=== PATIENT | female | born 1930 | race Caucasian/White ===

== ENCOUNTER 2016-05-26 11:31 | Day surgery (SDC) | payer BC ==
--- NOTE | ~2016-05-26 | EGD ---
EGD REPORT [facility] [address] [address] NAME: JOSIAH PERDOMO : [birth year] STATUS : REG [facility] PAT#: [id number] AGE: 85 ADM/REG DATE : 05/26/16 MR#: [id number] REPORT SERV DATE: 05/26/16 DICTATED BY: DATE: REPORT STATUS : Draft TRANSCRIBED BY: [employer] DATE: 05/26/16 Endoscopy Center Patient Name: Grace Perdomo Date of : 1930 Attending MD: KRISTIN CRYSTAL MD Procedure Date No Time: 05/26/2016 Procedure: Upper GI endoscopy Indications: Heme positive stool, Melena Referring MD: Greer Gore MD Medicines: Monitored Anesthesia Care Complications: No immediate complications. Procedure: After obtaining informed consent, the endoscope was passed under direct vision. Throughout the procedure, the patient's blood pressure, pulse, and oxygen saturations were monitored continuously. The GIF H190 [id number] was introduced through the mouth, and advanced to the third part of duodenum. The upper GI endoscopy was accomplished without difficulty. The patient tolerated the procedure well. Findings: A small hiatus hernia was present. A non-obstructing Schatzki ring (acquired) was found at the gastroesophageal junction. No other significant abnormalities were identified in a careful examination of the esophagus. There is no endoscopic evidence of Andrade's esophagus, areas of erosion, ulcerations or varices in the entire esophagus. Multiple dispersed small erosions were found on the greater curvature of the gastric body and in the gastric antrum. Biopsies were taken with a cold forceps for histology. Three non-bleeding cratered gastric ulcers were found in the gastric antrum. The largest lesion was 4 mm in largest dimension. No other significant abnormalities were identified in a careful examination of the stomach. There is no endoscopic evidence of varices, angioectasia or portal hypertension gastropathy in the entire examined stomach. The examined duodenum was normal. There is no endoscopic evidence of bleeding, inflammation, ulceration or angioectasia in the entire examined duodenum. The cardia and gastric fundus were otherwise normal on retroflexion. Impression: - Hiatus hernia. - Non-obstructing Schatzki ring. - Erosive gastropathy. Biopsied. EGD REPORT [address] [address] NAME: JOSIAH PERDOMO : [birth year] STATUS : REG [facility] PAT#: [id number] AGE: 85 ADM/REG DATE : 05/26/16 MR#: [id number] REPORT SERV DATE: 05/26/16 DICTATED BY: DATE: REPORT STATUS : Draft TRANSCRIBED BY: [employer] DATE: 05/26/16 - Gastric ulcers with clean base. - Normal examined duodenum. Recommendation: - Patient has a contact number available for emergencies. The signs and symptoms of potential delayed complications were discussed with the patient. Return to normal activities tomorrow. Written discharge instructions were provided to the patient. - Return to previous diet. - Discharge patient to home. - Use Protonix (pantoprazole) 40 mg PO daily for 12 weeks then 20 mg daily as long as on aspirin. This will replace Pepcid. I sent Rx to your [facility]. OTC substitution is okay but check with pharmacist regarding equivalent dose. Avoid anti-flammatory medicines. Procedure Code(s): --- Professional --- 62717, Esophagogastroduodenoscopy, flexible, transoral; with biopsy, single or multiple Diagnosis Code(s): --- Professional --- K44.9, Diaphragmatic hernia without obstruction or gangrene K22.2, Esophageal obstruction K31.9, Disease of stomach and duodenum, unspecified K25.9, Gastric ulcer, unspecified as acute or chronic, without hemorrhage or perforation R19.5, Other fecal abnormalities K92.1, Melena CPT copyright 2013 [employer]. All rights reserved. The codes documented in this report are preliminary and upon c java developer review may be revised to meet current compliance requirements. KRISTIN CRYSTAL MD 05/26/2016 1:34 PM This report has been signed electronically. Number of Addenda: 0 Note Initiated On: 05/26/2016 1:06 PM Scope Withdrawal Time 0 hours 0 minutes 0 seconds [id number] [id number]
--- NOTE | ~2016-05-26 | EGD ---
EGD REPORT [facility] [address] [address] NAME: JOSIAH PERDOMO : [birth year] STATUS : REG [facility] PAT#: [id number] AGE: 85 ADM/REG DATE : 05/26/16 MR#: [id number] REPORT SERV DATE: 05/26/16 DICTATED BY: DATE: REPORT STATUS : Draft TRANSCRIBED BY: [employer] DATE: 05/26/16 THIS EXAM WAS SENT IN ERROR
--- NOTE | ~2016-05-26 | EGD ---
EGD REPORT [facility] [address] [address] NAME: YESENIA PERDOMO : [birth year] STATUS : REG [facility]#: [id number] AGE: 85 ADM/REG DATE : 05/26/16 MR#: [id number] REPORT SERV DATE: 05/26/16 DICTATED BY: DATE: REPORT STATUS : Draft TRANSCRIBED BY: [employer] DATE: 05/26/16 Endoscopy Center Patient Name: Yesenia Perdomo Date of : 1930 Attending MD: KRISTIN CRYSTAL MD Procedure Date No Time: 05/26/2016 Procedure: Upper GI endoscopy Indications: Heme positive stool, Melena Referring MD: Greer Gore MD Medicines: Monitored Anesthesia Care Complications: No immediate complications. Procedure: After obtaining informed consent, the endoscope was passed under direct vision. Throughout the procedure, the patient's blood pressure, pulse, and oxygen saturations were monitored continuously. The GIF H190 [id number] was introduced through the mouth, and advanced to the third part of duodenum. The upper GI endoscopy was accomplished without difficulty. The patient tolerated the procedure well. Findings: A small hiatus hernia was present. A non-obstructing Schatzki ring (acquired) was found at the gastroesophageal junction. No other significant abnormalities were identified in a careful examination of the esophagus. There is no endoscopic evidence of Andrade's esophagus, areas of erosion, ulcerations or varices in the entire esophagus. Multiple dispersed small erosions were found on the greater curvature of the gastric body and in the gastric antrum. Biopsies were taken with a cold forceps for histology. Three non-bleeding cratered gastric ulcers were found in the gastric antrum. The largest lesion was 4 mm in largest dimension. No other significant abnormalities were identified in a careful examination of the stomach. There is no endoscopic evidence of varices, angioectasia or portal hypertension gastropathy in the entire examined stomach. The examined duodenum was normal. There is no endoscopic evidence of bleeding, inflammation, ulceration or angioectasia in the entire examined duodenum. The cardia and gastric fundus were otherwise normal on retroflexion. Impression: - Hiatus hernia. - Non-obstructing Schatzki ring. - Erosive gastropathy. Biopsied. EGD REPORT [address] [address] NAME: YESENIA PERDOMO : [birth year] STATUS : REG [facility] PAT#: [id number] AGE: 85 ADM/REG DATE : 05/26/16 MR#: [id number] REPORT SERV DATE: 05/26/16 DICTATED BY: DATE: REPORT STATUS : Draft TRANSCRIBED BY: [employer] DATE: 05/26/16 - Gastric ulcers with clean base. - Normal examined duodenum. Recommendation: - Patient has a contact number available for emergencies. The signs and symptoms of potential delayed complications were discussed with the patient. Return to normal activities tomorrow. Written discharge instructions were provided to the patient. - Return to previous diet. - Discharge patient to home. - Use Protonix (pantoprazole) 40 mg PO daily for 12 weeks then 20 mg daily as long as on aspirin. This will replace Pepcid. I sent Rx to your [facility]. OTC substitution is okay but check with pharmacist regarding equivalent dose. Avoid anti-flammatory medicines. Procedure Code(s): --- Professional --- 94285, Esophagogastroduodenoscopy, flexible, transoral; with biopsy, single or multiple Diagnosis Code(s): --- Professional --- K44.9, Diaphragmatic hernia without obstruction or gangrene K22.2, Esophageal obstruction K31.9, Disease of stomach and duodenum, unspecified K25.9, Gastric ulcer, unspecified as acute or chronic, without hemorrhage or perforation R19.5, Other fecal abnormalities K92.1, Melena CPT copyright 2013 [employer]. All rights reserved. The codes documented in this report are preliminary and upon movers review may be revised to meet current compliance requirements. KRISTIN CRYSTAL MD 05/26/2016 1:34 PM This report has been signed electronically. Number of Addenda: 0 Note Initiated On: 05/26/2016 1:06 PM Scope Withdrawal Time 0 hours 0 minutes 0 seconds [id number] [id number]
[~2016-05-26 11:31] MED LIST: ASAB PO; ATEN100 PO; CRESTOR40 MG PO; DURA25 TOP; ESTRADIOL0.5 MG OR; FISH-EPA1000 MG PO; GLUCOTROL5 PO; MAX25 PO; OSTEO BI-FLX PO
[2016-07-04] MEDS ORDERED: FORTAMET500 MG PO (16:24)
[2016-07-04] MEDS ORDERED: GLUCOTROL5 PO (16:24)
[2016-07-04] MEDS ORDERED: COZ50 PO (16:25)
[2016-07-04] MEDS ORDERED: L20 PO (16:25)
[2016-07-04] MEDS ORDERED: MAG OXIDE250 MG PO (16:25)
[2016-07-04] MEDS ORDERED: KLOR-CON 1010 MEQ PO (16:25)
[2016-07-04] MEDS ORDERED: VISKEN5 PO (16:25)
[2016-07-04] MEDS ORDERED: FISH-EPA1000 MG PO (16:26)
[2016-07-04] MEDS ORDERED: TEARS PLUS OPH (16:26)
[2016-07-04] MEDS ORDERED: CETIRIZINE HCL5 MG PO (16:26)
[2016-07-04] MEDS ORDERED: VITAMIN D31000 UNIT PO (16:26)
[2016-07-04] MEDS ORDERED: CYANO1000T PO (16:26)
[2016-07-04] MEDS ORDERED: PROTONIX PO (16:26)
[2016-07-04] MEDS ORDERED: CRESTOR5 MG PO (16:27)
[2016-07-04] MEDS ORDERED: ESTRACE0.5 MG PO (16:27)
[2016-07-04] MEDS ORDERED: SINGULAIR1 PO (16:27)
== END 2016-05-26 23:59 | disposition home health service (06) ==
LOC: DMU 11:31
PROVIDERS: Internal Medicine Gastroenterology
PROC: 0DB68ZX Excision of Stomach, Via Natural or Artificial Opening Endoscopic, Diagnostic (ICD-10-PCS; principal; 2016-05-26 13:00)
DX: K44.9 Diaphragmatic hernia without obstruction or gangrene (principal); K22.2 Esophageal obstruction; I10 Essential (primary) hypertension; K25.9 Gastric ulcer, unspecified as acute or chronic, without hemorrhage or perforation; E11.9 Type 2 diabetes mellitus without complications; I25.2 Old myocardial infarction; Z88.1 Allergy status to other antibiotic agents; Z88.8 Allergy status to other drugs, medicaments and biological substances; Z90.710 Acquired absence of both cervix and uterus; Z98.890 Other specified postprocedural states
CPT/HCPCS: 82962; 88305; J2370

== ENCOUNTER 2016-07-04 17:13 | Inpatient (IN) | payer BC ==
--- NOTE | ~2016-07-04 | CN ---
Consultation Report [facility] [address] [place]. [address] NAME: JOSIAH PERDOMO : [birth year] STATUS : ADM IN PAT#: [id number] AGE: 85 ADM/REG DATE : 07/04/16 MR#: [id number] REPORT SERV DATE: 07/05/16 DICTATED BY: PAPA ALVARES DATE: 07/05/16 REPORT STATUS : Draft TRANSCRIBED BY: [employer] DATE: 07/05/16 CARDIOLOGY CONSULTATION DATE OF CONSULTATION: INDICATION: Symptomatic bradycardia, presyncope with type 2 second-degree AV block. HISTORY: The patient is an 85-year-old white female, diabetic who is usually followed by Dr. Loco. Over the past week or so, she has had intermittent episodes of dizziness. She went to a [employer] in [place] recently, was able to keep up over the weekend, but upon returning home had an erratic heart rate, where her heart rate would jump from 80 to 40 without warning and create dizziness. She saw her primary care physician who had her admitted to the hospital. On arrival, she is in 2-1 AV block with a heart rate of 42 beats per minute. CURRENT HOME MEDICATIONS: Artificial Tears daily, cetirizine 5 per day, cholecalciferol 1000 per day, cyanocobalamin 1000 per day, estradiol 0.5 at bedtime, furosemide 20 a day, glipizide 5 per day, losartan 50 b.i.d., magnesium oxide 250 a day, metformin 500 daily, montelukast 10 per day, Carson-3 fatty acids daily, pantoprazole 40 a day, pindolol 5 per day, potassium 10 per day, rosuvastatin 5 per day. ALLERGIES OR INTOLERANCES: Sulfamethoxazole and trimethoprim. Additional allergies, cefuroxime, IV dye, latex, meperidine. SOCIAL HISTORY: Occasional alcoholic beverage. Negative for tobacco use. FAMILY HISTORY: Negative for coronary disease at a young age. PAST MEDICAL HISTORY/REVIEW OF SYSTEMS: In addition to the above, she has dyslipidemia. She has mild diastolic dysfunction and mild aortic regurgitation with mitral annular calcification based on echocardiogram a year ago. 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 PHYSICAL EXAMINATION: GENERAL: A pleasant 85-year-old white female. VITAL SIGNS: Blood pressure 118/49, pulse 46 and regular, respirations 18. SKIN: No xanthelasmas. HEENT: She is normocephalic. There is no pallor. Sclerae white. NECK: JVD is not elevated. There are no carotid bruits. CHEST: There are no crackles. CARDIAC: S1 normal, S2 physiologic. There is a 1 to 2 over 6 systolic ejection murmur heard loudest at the right second interspace transferred to the base. ABDOMEN: Soft. Consultation Report [address] [address] NAME: JOSIAH PERDOMO : [birth year] STATUS : ADM IN PAT#: [id number] AGE: 85 ADM/REG DATE : 07/04/16 MR#: [id number] REPORT SERV DATE: 07/05/16 DICTATED BY: PAPA ALVARES DATE: 07/05/16 REPORT STATUS : Draft TRANSCRIBED BY: [employer] DATE: 07/05/16 EXTREMITIES: Without edema. Pulses are +2 and symmetric. NEUROLOGIC: No focal deficits. LABORATORY DATA: BUN 19, creatinine 1.41. White count 10.7, hemoglobin 13.2. IMPRESSION: An 85-year-old white female, diabetic with 2-1 AV block. Previous history of alcohol septal ablation in 2010. We will plan pacemaker placement. Risks, benefits were discussed with the patient and her daughter. DW/JENNAL Papa Alvares M.D. / [id number] CC: Isaias Aragon Jr., [facility]
--- NOTE | ~2016-07-04 | PRECARD ---
H&P [facility] [address] [place]. [address] NAME: JOSIAH PERDOMO : [birth year] STATUS : ADM IN PAT#: [id number] AGE: 85 ADM/REG DATE : 07/04/16 MR#: [id number] REPORT SERV DATE: 07/04/16 DICTATED BY: YAN WELLS DATE: 07/04/16 REPORT STATUS : Draft TRANSCRIBED BY: [employer] DATE: 07/04/16 DATE OF ADMISSION: 07/04/2016 ADMISSION REASON: Symptomatic bradycardia and 2:1 AV block. HISTORY PRESENT ILLNESS: Ms. Perdomo is an 85-year-old female with a history of hypertrophic cardiomyopathy, status post alcohol septal ablation at [facility] several years ago. She has been experiencing several weeks to possibly 1-2 months of activity intolerance with fatigue/malaise, exertional dyspnea, and dizziness/lightheadedness. She has had no syncope. She otherwise had no symptoms of exertional angina. She denies orthopnea/PND and lower extremity edema. On arrival to the [facility] Room, she was noted to be bradycardic with a heart rate of 40s. A followup EKG confirmed the 2:1 AV block. She otherwise has been hemodynamically stable at rest with a systolic blood pressure of 130s. REVIEW OF SYSTEMS: Pertinent positives and negatives as outlined above, all other negative. PAST MEDICAL HISTORY: 1. Hypertrophic obstructive cardiomyopathy, status post alcohol septal ablation. 2. Hypertension. 3. History of renal artery stenosis. 4. CKD, stage II. 5. Diabetes mellitus. MEDICATIONS: Her current home medications are 1. Pindolol 5 mg twice daily. 2. Rosuvastatin 5 mg at bedtime. 3. Losartan 50 mg twice daily. 4. Lasix 20 mg daily. 5. Vitamin D supplementation. 6. Vitamin B12 supplementation. 7. Glipizide 5 mg daily. 8. Metformin as directed. 9. Potassium supplementation. 10.Pantoprazole 40 mg daily. 11.Fish oil supplementation. 12.Singulair 10 mg daily. 13.Magnesium supplementation. ALLERGIES: INCLUDE TRIMETHOPRIM WHICH CAUSES A RASH AND SULFAMETHOXAZOLE FROM BACTRIM WHICH CAUSES A RASH. SOCIAL HISTORY: Ms. Perdomo is retired. She lives independently and performs all ADLs. She consumes minimal social alcohol. She does not use tobacco products. FAMILY HISTORY: There is no significant family history of premature CAD or sudden . H&P [address] [place]. [address] NAME: JOSIAH PERDOMO : [birth year] STATUS : ADM IN PAT#: [id number] AGE: 85 ADM/REG DATE : 07/04/16 MR#: [id number] REPORT SERV DATE: 07/04/16 DICTATED BY: YAN WELLS DATE: 07/04/16 REPORT STATUS : Draft TRANSCRIBED BY: TEQUILA DATE: 07/04/16 PHYSICAL EXAMINATION: VITALS: Temperature is afebrile, pulse is 40, respirations 16, and blood pressure is 130/70. MENTAL STATUS: Awake, alert, and oriented x3. PSYCHIATRIC: Euthymic, normal affect. GENERAL: Well appearing and in no distress. HEENT: Sclerae anicteric, mucous membranes moist and without lesions. NECK: No jugular venous distention. No hepatojugular reflux, carotid upstrokes 2+ and symmetric, there are no carotid or subclavian bruit. LUNGS: Clear to auscultation without wheezes, crackles, or rales. CARDIOVASCULAR: Rate regular and bradycardic with soft S1 and normal S2. No audible S3. There is a 1/6 early systolic ejection murmur at the left sternal border without radiation. ABDOMEN: Soft and nontender. Bowel sounds positive and normoactive. No hepatomegaly, no masses, no abdominal bruit. PULSES: Radial and dorsalis pedis pulses 2+ and symmetric. EXTREMITIES: Warm and without edema. SKIN: No clubbing or cyanosis, no rashes or lesions. ACCESSORY DATA: ECG on arrival shows a sinus rhythm with 2:1 AV block and a ventricular rate of 40 beats per minute. Creatinine is 1.35, BUN of 21, otherwise normal electrolytes. White count 9, hematocrit 42 with a platelet count of 272. TSH normal at 3.4. Magnesium normal 1.9. PT/INR are normal. IMPRESSION: 1. Symptomatic bradycardia. 2. 2:1 AV block. 3. Near syncope. 4. Hypertrophic cardiomyopathy, status post alcohol septal ablation. 5. Hypertension. 6. History of renal artery stenosis. 7. Chronic kidney disease, stage 2. 8. Diabetes mellitus, type 2. PLAN: 1. N.p.o. after midnight for permanent pacemaker placement. 2. Consult Electrophysiology. 3. SCDs/HÉCTOR hose for DVT prophylaxis. No anticoagulation with pending pacemaker procedure. 4. Hold metformin and prescribe sliding scale insulin. 5. Echocardiogram tomorrow morning to reassess cardiac dimensions and function. 6. Check a.m. labs. 7. IV fluids after midnight with half-normal saline at 75 mL/h. CONSENT: Risks and benefits of permanent pacemaker placement were discussed with the patient and her family. Risks including bleeding and infection, vascular access trauma, pneumothorax requiring chest tube placement, myocardial damage including pericardial H&P [address] [address] NAME: JOSIAH PERDOMO : [birth year] STATUS : ADM IN [facility]#: [id number] AGE: 85 ADM/REG DATE : 07/04/16 MR#: [id number] REPORT SERV DATE: 07/04/16 DICTATED BY: YAN WELLS. DATE: 07/04/16 REPORT STATUS : Draft TRANSCRIBED BY: TE[employer] DATE: 07/04/16 effusion that may require additional treatments and a less than 1% chance of major complications such as heart attack and stroke were all covered. After this, informed consent was obtained and she agreed to proceed. PERCY/TEQUILA Yan Wells M.D. / [id number] CC: Isaias Aragon Jr., DO
[2016-07-04 16:26] LABS: EOSINOPHILS 3.5 %; EOSINOPHILS ABSOLUTE 0.34 10/3/uL (0.0-0.53); HEMATOCRIT 41.9 % (36.0-48.0); HEMOGLOBIN 14.4 g/dL (12.0-16.0); IMMATURE GRANULOCYTES 0.2 %; IMMATURE GRANULOCYTES ABSOLUTE 0.02 10/3/uL (0.0-0.11); LYMPHOCYTES 24.7 %; LYMPHOCYTES ABSOLUTE 2.39 10/3/uL (0.67-4.30); MEAN CORPUS HGB CONC 34.4 g/dL (32.0-36.0); MEAN CORPUSCULAR HEMOGLOB 31.5 pg (26.0-34.0); MEAN CORPUSCULAR VOLUME 91.7 fL (80-100); MEAN PLATELET VOLUME 9.3 fL (9.2-13.0); MONOCYTES 9.4 %; MONOCYTES ABSOLUTE 0.91 10/3/uL (0.21-1.20); NEUTROPHILS 61.2 %; PLATELET COUNT 272 10/3/uL (150-400); RBC DISTRIBUTION WIDTH 13.7 % (12.0-16.0); RED CELL COUNT 4.57 10/6/uL (4.0-5.6)
[2016-07-04 16:32] LABS: ER CBC TAT 0 Hrs 09 Mins; MANUAL DIFF NO %; WHITE BLOOD CELLS 9.7 10/3/uL (4.5-10.5)
[2016-07-04 16:38] LABS: PARTIAL THROMBO TIME 34.5 SEC (22.5-37.2)
[2016-07-04 16:39] LABS: PROTIME (NOT ORD) 13.4 SEC (12.0-14.5)
[2016-07-04 16:48] LABS: CALCIUM, SERUM 9.6 MG/DL (8.5-10.4); CHEST PAIN PROFILE TAT 0 Hrs 25 Mins; CHLORIDE, SERUM 103 MMOL/L (96-112); CO2 (CARBON DIOXIDE) 27 MMOL/L (24-34); CREATININE 1.35 MG/DL (0.55-1.02); GFR AFRICAN AMERICAN 41 ML/MIN (>=60); GFR NON AFRICAN AMERICAN 35 ML/MIN (>=60); GLUCOSE, SERUM 130 MG/DL (60-99); SODIUM, SERUM 139 MMOL/L (135-148); TROPONIN I <0.02 NG/ML (<0.05)
[2016-07-04 16:51] LABS: BUN (BLOOD UREA NITROGEN) 21 MG/DL (6-23); POTASSIUM, SERUM 3.8 MMOL/L (3.5-5.3)
[~2016-07-04 17:13] MED LIST changes: +CETIRIZINE HCL5 MG PO; +COZ50 PO; +CRESTOR5 MG PO; +CYANO1000T PO; +ESTRACE0.5 MG PO; +FORTAMET500 MG PO; +KLOR-CON 1010 MEQ PO; +L20 PO; +MAG OXIDE250 MG PO; +PROTONIX PO; +SINGULAIR1 PO; +TEARS PLUS OPH; +VISKEN5 PO; +VITAMIN D31000 UNIT PO
[2016-07-05 05:33] LABS: BASOPHILS 0.8 %; BASOPHILS ABSOLUTE 0.09 10/3/uL (0.0-0.16); EOSINOPHILS 3.2 %; EOSINOPHILS ABSOLUTE 0.34 10/3/uL (0.0-0.53); HEMATOCRIT 38.8 % (36.0-48.0); HEMOGLOBIN 13.2 g/dL (12.0-16.0); IMMATURE GRANULOCYTES 0.3 %; IMMATURE GRANULOCYTES ABSOLUTE 0.03 10/3/uL (0.0-0.11); LYMPHOCYTES 25.6 %; LYMPHOCYTES ABSOLUTE 2.75 10/3/uL (0.67-4.30); MANUAL DIFF NO %; MEAN CORPUSCULAR HEMOGLOB 31.6 pg (26.0-34.0); MEAN CORPUSCULAR VOLUME 92.8 fL (80-100); MEAN PLATELET VOLUME 9.4 fL (9.2-13.0); MONOCYTES ABSOLUTE 0.97 10/3/uL (0.21-1.20); NEUTROPHILS 61.1 %; NEUTROPHILS ABSOLUTE 6.56 10/3/uL (2.02-8.40); PLATELET COUNT 277 10/3/uL (150-400); RBC DISTRIBUTION WIDTH 13.5 % (12.0-16.0); RED CELL COUNT 4.18 10/6/uL (4.0-5.6); WHITE BLOOD CELLS 10.7 10/3/uL (4.5-10.5)
[2016-07-05 05:35] LABS: INTERNATIONAL NORMAL RATI 1.1 UNITS (-); PARTIAL THROMBO TIME 32.5 SEC (22.5-37.2); PROTIME (NOT ORD) 14.3 SEC (12.0-14.5)
[2016-07-05 05:42] LABS: BUN (BLOOD UREA NITROGEN) 19 MG/DL (6-23); CALCIUM, SERUM 9.7 MG/DL (8.5-10.4); CHLORIDE, SERUM 103 MMOL/L (96-112); CO2 (CARBON DIOXIDE) 29 MMOL/L (24-34); CREATININE 1.41 MG/DL (0.55-1.02); GFR AFRICAN AMERICAN 39 ML/MIN (>=60); GFR NON AFRICAN AMERICAN 33 ML/MIN (>=60); SODIUM, SERUM 142 MMOL/L (135-148)
[2016-07-05 05:44] LABS: GLUCOSE, SERUM 167 MG/DL (60-99)
[2016-07-06] MEDS ORDERED: ULTRAM50 PO (10:13)
== END 2016-07-06 11:29 | disposition home or self-care (01) | DRG 244 ==
LOC: ER 17:13 → 7NO 18:16
PROVIDERS: Emergency Medicine; Internal Medicine Cardiovascular Disease
PROC: 0JH606Z Insertion of Pacemaker, Dual Chamber into Chest Subcutaneous Tissue and Fascia, Open Approach (ICD-10-PCS; principal; 2016-07-05)
PROC: 02H63JZ Insertion of Pacemaker Lead into Right Atrium, Percutaneous Approach (ICD-10-PCS; 2016-07-05)
PROC: 02HK3JZ Insertion of Pacemaker Lead into Right Ventricle, Percutaneous Approach (ICD-10-PCS; 2016-07-05)
DX: I44.1 Atrioventricular block, second degree (principal); I42.1 Obstructive hypertrophic cardiomyopathy; E11.22 Type 2 diabetes mellitus with diabetic chronic kidney disease; I42.2 Other hypertrophic cardiomyopathy; R00.1 Bradycardia, unspecified; I12.9 Hypertensive chronic kidney disease with stage 1 through stage 4 chronic kidney disease, or unspecified chronic kidney disease; N18.2 Chronic kidney disease, stage 2 (mild); Z91.041 Radiographic dye allergy status; Z91.040 Latex allergy status; Z88.2 Allergy status to sulfonamides; I70.1 Atherosclerosis of renal artery
CPT/HCPCS: 33208; 71010; 80048; 82962; 83735; 84443; 84484; 85025; 85610; 85730; 93005; 93306; 99291; A9270-GY; C1785; C1892; C1898; J0690; J3010